=== PATIENT | male | born 1980 | race Caucasian/White ===

== ENCOUNTER 2020-07-12 14:52 | Inpatient (IN) | payer MEDICARE ==
[~2020-07-12] VITALS: Ht 165.1 cm; Wt 84.4 kg
[2020-07-12] MEDS ORDERED: DEXTROSE 50%-WATER 50 ML DISP.SYRIN IV ONE (15:25)
[2020-07-12] MEDS ORDERED: 0.9%NACL 1000ML 1,000 ML IV ONE (15:25)
[2020-07-12 15:32] LABS: BASOPHILS % (AUTO) 0.2 % (0.0-5.0); HEMATOCRIT 36.3 % (42-54); LYMPHOCYTES % (AUTO) 5.7 % (21.0-51.0); MEAN CORPUSCULAR HEMOGLOBIN 29.6 pg (27.0-33.0); MEAN CORPUSCULAR HGB CONC 33.3 g/dL (32.0-36.0); MEAN CORPUSCULAR VOLUME 88.8 fL (79-99); MONOCYTES % (AUTO) 3.1 % (3.0-13.0); NEUTROPHILS % (AUTO) 90.7 % (40.0-77.0); PLATELET COUNT (AUTO) 235 K/uL (130-400); RED BLOOD CELL COUNT(AUTO) 4.09 MIL/uL (4.50-6.20); RED CELL DISTRIBUTION WIDTH 12.2 % (11.0-15.5); WHITE BLOOD COUNT (AUTO) 9.8 K/uL (4.8-10.8)
[2020-07-12 15:42] LABS: CREATININE 3.4 mg/dL (0.5-1.5); INR 1.03 (0.85-1.15); POTASSIUM 4.4 mmol/L (3.5-5.1)
[2020-07-12 15:44] LABS: PARTIAL THROMBOPLASTIN TIME 28.2 SEC (26.3-35.5)
[2020-07-12 15:47] LABS: ALBUMIN 2.5 g/dL (3.5-5.0); BILIRUBIN,TOTAL 0.4 mg/dL (0.2-1.0); TOTAL PROTEIN, SERUM 6.6 g/dL (6.0-8.3)
[2020-07-12 16:05] LABS: ABG BASE EXCESS -3.5 mmol/L (-2.0-3.0); ABG HCO3 21.1 mmol/L (21.0-28.0); ABG PCO2 37 mmHg (35-48)
[2020-07-12 16:10] LABS: TROPONIN I 0.08 ng/mL (0.00-0.06)
[2020-07-12 17:46] LABS: APPEARANCE,URINE Clear (CLEAR); BILIRUBIN,URINE Negative (NEGATIVE); COLOR,URINE Yellow (YELLOW); GLUCOSE, URINE (UA) Negative (NEGATIVE); KETONES,URINE Negative (NEGATIVE); LEUKOCYTE ESTERASE ,URINE Negative (NEGATIVE); NITRATE,URINE Negative (NEGATIVE); OCCULT BLOOD,URINE Trace (NEGATIVE); PH,URINE 5.5 (5.0-8.0); PROTEIN,URINE >=1000 mg/dL (NEGATIVE); UROBILINOGEN,URINE 0.2 mg/dL (0.2-1.0)
[2020-07-12 17:53] LABS: AMPHET/METH SCREEN,URINE NEGATIVE (NEGATIVE); BARBITURATE SCREEN, URINE NEGATIVE (NEGATIVE); BENZODIAZEPINES SCREEN,URINE NEGATIVE (NEGATIVE); CANNABINOID SCREEN,URINE NEGATIVE (NEGATIVE); COCAINE SCREEN,URINE NEGATIVE (NEGATIVE); OPIATE SCREEN,URINE POSITIVE (NEGATIVE); PHENCYCLIDINE SCREEN,URINE NEGATIVE (NEGATIVE)
[2020-07-12 18:04] LABS: BACTERIA,URINE Moderate /HPF (None Seen); RBC,URINE 0-1 /HPF (0-1); WBC,URINE 0-1 /HPF (0-1)
[2020-07-12 18:05] LABS: SQUAMOUS EPITHELIAL CELL,UR Rare /HPF (0-2)
[2020-07-12] MEDS ORDERED: GUAIFENESIN-DM 200/20 MG 10 ML PO PRN (18:15)
[2020-07-12] MEDS: DEXTROSE 5%-LACTATED RINGERS 1,000 ML IV SCH (18:15)
[2020-07-12] MEDS ORDERED: DIPHENHYDRAMINE HCL 25 MG CAPSULE PO PRN (18:15)
[2020-07-12] MEDS ORDERED: MAG/ALUM/SIMETH 30 ML UDCUP PO PRN (18:15)
[2020-07-12] MEDS ORDERED: DiphenhydrAMINE HCL 50 MG/ML VIAL IV PRN (18:15)
[2020-07-12] MEDS ORDERED: ACETAMINOPHEN 325 MG TAB PO PRN (18:15)
[2020-07-12] MEDS ORDERED: LACTULOSE 20 GM/30 ML UDCUP PO PRN (18:15)
[2020-07-12] MEDS ORDERED: ONDANSETRON 4MG INJ IV PRN (18:15)
[2020-07-12] MEDS ORDERED: NALOXONE HCL 0.4 MG/1 ML ML ONE ×2 (18:26→18:38)
[2020-07-12 18:30] LABS: HEMOGLOBIN A1C 7.9 % (4.0-6.0)
[2020-07-12 19:40] LABS: HEMATOCRIT 31.9 % (42-54)
[2020-07-12 19:48] LABS: CREATININE 3.1 mg/dL (0.5-1.5); POTASSIUM 4.7 mmol/L (3.5-5.1)
[2020-07-12 19:52] LABS: MAGNESIUM 1.8 mg/dL (1.80-2.40)
[2020-07-12 20:04] LABS: ACETAMINOPHEN < 1 mcg/mL (10-29); ALCOHOL, BLOOD < 3 mg/dL (0-10); SALICYLATE < 2.8 mg/dL (2.8-20.0)
[2020-07-12] MEDS: CEFTRIAXONE 1G VIAL IVP SCH (22:00)
[2020-07-12] MEDS ORDERED: CEFTRIAXONE 1G VIAL ONE (22:13)
[2020-07-13] MEDS ORDERED: DEXTROSE 10%-WATER 1,000 ML IV ONE (00:40)
[2020-07-13] MEDS: DEXTROSE 5%-LACTATED RINGERS 1,000 ML IV SCH ×4 (04:15→23:33)
[2020-07-13 05:00] VITALS: BP 146/78
[2020-07-13] MEDS ORDERED: TORS10TA18 PO (05:33)
[2020-07-13] MEDS ORDERED: ACET1TAB25 PO (05:33)
[2020-07-13] MEDS ORDERED: ATOR40TA69 PO (05:33)
[2020-07-13] MEDS ORDERED: TICA90TA PO (05:33)
[2020-07-13 08:00] VITALS: BP 149/78
[2020-07-13] MEDS: FAMOTIDINE 20MG VIAL IV SCH (08:40)
[2020-07-13 12:00] VITALS: BP 160/88
[2020-07-13 14:48] LABS: BASOPHILS % (AUTO) 0.4 % (0.0-5.0); EOSINOPHILS % (AUTO) 0.6 % (0.0-8.0); HEMATOCRIT 30.1 % (42-54); LYMPHOCYTES % (AUTO) 11.9 % (21.0-51.0); MEAN CORPUSCULAR HEMOGLOBIN 30.5 pg (27.0-33.0); MEAN CORPUSCULAR HGB CONC 33.2 g/dL (32.0-36.0); MEAN CORPUSCULAR VOLUME 91.8 fL (79-99); MONOCYTES % (AUTO) 5.7 % (3.0-13.0); PLATELET COUNT (AUTO) 171 K/uL (130-400); RED BLOOD CELL COUNT(AUTO) 3.28 MIL/uL (4.50-6.20); RED CELL DISTRIBUTION WIDTH 12.5 % (11.0-15.5)
[2020-07-13 15:02] LABS: CREATININE 3.1 mg/dL (0.5-1.5); POTASSIUM 4.1 mmol/L (3.5-5.1)
[2020-07-13] MEDS: METOPROLOL TARTRATE 25 MG TAB PO SCH (15:03)
[2020-07-13 15:09] LABS: ALBUMIN 1.9 g/dL (3.5-5.0); BILIRUBIN,TOTAL 0.4 mg/dL (0.2-1.0); TOTAL PROTEIN, SERUM 5.3 g/dL (6.0-8.3)
[2020-07-13 16:00] VITALS: BP 179/94
[2020-07-13 20:13] VITALS: BP 177/94
[2020-07-13] MEDS ORDERED: METOPROLOL TARTRATE 25 MG TAB PO SCH (21:00)
[2020-07-13] MEDS: CEFTRIAXONE 1G VIAL IVP SCH (22:06)
[2020-07-13 23:41] VITALS: BP 178/97
[2020-07-14 04:10] VITALS: BP 178/98
[2020-07-14 06:06] LABS: BASOPHILS % (AUTO) 0.4 % (0.0-5.0); EOSINOPHILS % (AUTO) 0.6 % (0.0-8.0); HEMATOCRIT 33.6 % (42-54); LYMPHOCYTES % (AUTO) 11.2 % (21.0-51.0); MEAN CORPUSCULAR HEMOGLOBIN 29.9 pg (27.0-33.0); MEAN CORPUSCULAR HGB CONC 32.4 g/dL (32.0-36.0); MEAN CORPUSCULAR VOLUME 92.3 fL (79-99); MONOCYTES % (AUTO) 4.6 % (3.0-13.0); NEUTROPHILS % (AUTO) 82.9 % (40.0-77.0); PLATELET COUNT (AUTO) 174 K/uL (130-400); RED BLOOD CELL COUNT(AUTO) 3.64 MIL/uL (4.50-6.20); RED CELL DISTRIBUTION WIDTH 12.4 % (11.0-15.5)
[2020-07-14 06:45] LABS: HEMOGLOBIN A1C 7.8 % (4.0-6.0)
[2020-07-14 06:49] LABS: BILIRUBIN,DIRECT 0.2 mg/dL (0.0-0.3); BILIRUBIN,TOTAL 0.5 mg/dL (0.2-1.0); CREATININE 3.4 mg/dL (0.5-1.5); PHOSPHORUS 4.2 mg/dL (2.5-4.9); POTASSIUM 4.5 mmol/L (3.5-5.1); THYROID STIMULATING HORMONE 1.24 uIU/mL (0.36-3.74); TOTAL PROTEIN, SERUM 5.6 g/dL (6.0-8.3)
[2020-07-14 07:59] VITALS: BP 179/97
[2020-07-14 08:02] VITALS: BP 179/97
[2020-07-14] MEDS: DEXTROSE 5%-LACTATED RINGERS 1,000 ML IV SCH (10:30)
[2020-07-14] MEDS ORDERED: DEXTROSE 50%-WATER 50 ML DISP.SYRIN IV PRN (11:00)
[2020-07-14] MEDS ORDERED: GLUCAGON 1MG KIT 1 MG ML IM PRN (11:00)
[2020-07-14] MEDS: ASPIRIN 81MG CHEW TAB PO SCH (11:14)
[2020-07-14] MEDS: ISOSORBIDE DINITRATE 10MG TAB PO SCH ×2 (11:14→20:11)
[2020-07-14] MEDS: CLOPIDOGREL 75MG TAB PO SCH (11:14)
[2020-07-14] MEDS: Vitamin B Complex/Vit C/Folic Acid PO SCH (11:14)
[2020-07-14] MEDS: FAMOTIDINE 20MG VIAL IV SCH (11:14)
[2020-07-14] MEDS: CARVEDILOL 12.5 MG TABLET PO SCH ×2 (11:15→20:11)
[2020-07-14] MEDS: PANTOPRAZOLE 40 MG TAB DR PO SCH (11:15)
[2020-07-14] MEDS: METOPROLOL TARTRATE 25 MG TAB PO SCH (11:16)
[2020-07-14] MEDS: ENOXAPARIN SODIUM 40 MG/0.4 ML SYRINGE SQ SCH (11:16)
[2020-07-14] MEDS: THIAMINE HCL 100 MG/ML 2ML VIAL IVP SCH (11:16)
[2020-07-14] MEDS: 0.9%NACL 1000ML 1,000 ML IV SCH ×2 (11:24→22:43)
[2020-07-14 12:00] VITALS: BP 177/97
[2020-07-14] MEDS: INSULIN HUMULIN R 100 UNIT/ML 3ML SQ SCH ×3 (14:36→20:13)
[2020-07-14 16:43] VITALS: BP 147/72
[2020-07-14] MEDS: PHARMACY COMMUNICATION MISC SCH (22:43)
[2020-07-14] MEDS: CEFTRIAXONE 1G VIAL IVP SCH (22:52)
[2020-07-14 23:57] VITALS: BP 112/58
[2020-07-15] MEDS ORDERED: DiphenhydrAMINE HCL 50 MG/ML VIAL IM PRN (02:15)
[2020-07-15] MEDS ORDERED: HALOPERIDOL INJ 5 MG/ML VIAL IM PRN (02:15)
[2020-07-15 04:00] VITALS: BP 140/70
[2020-07-15] MEDS: 0.9%NACL 1000ML 1,000 ML IV SCH (06:03)
[2020-07-15 06:04] LABS: BASOPHILS % (AUTO) 0.5 % (0.0-5.0); EOSINOPHILS % (AUTO) 0.7 % (0.0-8.0); HEMATOCRIT 26.9 % (42-54); LYMPHOCYTES % (AUTO) 15.6 % (21.0-51.0); MEAN CORPUSCULAR HGB CONC 32.7 g/dL (32.0-36.0); MEAN CORPUSCULAR VOLUME 91.8 fL (79-99); NEUTROPHILS % (AUTO) 77.9 % (40.0-77.0); PLATELET COUNT (AUTO) 153 K/uL (130-400); RED BLOOD CELL COUNT(AUTO) 2.93 MIL/uL (4.50-6.20); RED CELL DISTRIBUTION WIDTH 12.3 % (11.0-15.5); WHITE BLOOD COUNT (AUTO) 6.1 K/uL (4.8-10.8)
[2020-07-15] MEDS: INSULIN HUMULIN R 100 UNIT/ML 3ML SQ SCH ×4 (06:14→20:24)
[2020-07-15 06:20] LABS: ALBUMIN 1.8 g/dL (3.5-5.0); BILIRUBIN,TOTAL 0.4 mg/dL (0.2-1.0); POTASSIUM 4.5 mmol/L (3.5-5.1)
[2020-07-15 07:30] VITALS: BP 143/65
[2020-07-15] MEDS: PHARMACY COMMUNICATION MISC SCH ×2 (11:15→19:26)
[2020-07-15] MEDS: Vitamin B Complex/Vit C/Folic Acid PO SCH (11:22)
[2020-07-15] MEDS: ASPIRIN 81MG CHEW TAB PO SCH (11:22)
[2020-07-15] MEDS: FAMOTIDINE 20MG VIAL IV SCH (11:22)
[2020-07-15] MEDS: THIAMINE HCL 100 MG/ML 2ML VIAL IVP SCH (11:22)
[2020-07-15] MEDS: CARVEDILOL 12.5 MG TABLET PO SCH ×2 (11:23→20:17)
[2020-07-15] MEDS: ISOSORBIDE DINITRATE 10MG TAB PO SCH ×2 (11:23→20:17)
[2020-07-15] MEDS: PANTOPRAZOLE 40 MG TAB DR PO SCH (11:24)
[2020-07-15] MEDS: CLOPIDOGREL 75MG TAB PO SCH (11:24)
[2020-07-15] MEDS: ENOXAPARIN SODIUM 40 MG/0.4 ML SYRINGE SQ SCH (11:26)
[2020-07-15 11:30] VITALS: BP 156/81
[2020-07-15] MEDS: METOPROLOL TARTRATE 25 MG TAB PO SCH (12:30)
[2020-07-15] MEDS: LACTATED RINGERS 1000ML IV SCH (13:58)
[2020-07-15] MEDS: LACTATED RINGERS 1000ML 1,000 ML IV SCH ×2 (14:04→20:19)
[2020-07-15 16:00] VITALS: BP 157/81
[2020-07-15 20:00] VITALS: BP 133/71
[2020-07-15] MEDS: CEFTRIAXONE 1G VIAL IVP SCH (20:25)
[2020-07-16] VITALS: BP 126/70
[2020-07-16] MEDS: LACTATED RINGERS 1000ML 1,000 ML IV SCH ×4 (01:37→20:49)
[2020-07-16 04:00] VITALS: BP 137/76
[2020-07-16 05:45] LABS: MEAN CORPUSCULAR HEMOGLOBIN 30.4 pg (27.0-33.0); MEAN CORPUSCULAR VOLUME 92.2 fL (79-99); PLATELET COUNT (AUTO) 162 K/uL (130-400); RED BLOOD CELL COUNT(AUTO) 2.93 MIL/uL (4.50-6.20); RED CELL DISTRIBUTION WIDTH 12.4 % (11.0-15.5); WHITE BLOOD COUNT (AUTO) 4.2 K/uL (4.8-10.8)
[2020-07-16] MEDS: INSULIN HUMULIN R 100 UNIT/ML 3ML SQ SCH ×4 (06:36→21:08)
[2020-07-16 06:56] LABS: ALBUMIN 1.8 g/dL (3.5-5.0); BILIRUBIN,TOTAL 0.2 mg/dL (0.2-1.0); CREATININE 3.7 mg/dL (0.5-1.5); MAGNESIUM 2.1 mg/dL (1.80-2.40); PHOSPHORUS 3.7 mg/dL (2.5-4.9); POTASSIUM 4.7 mmol/L (3.5-5.1); TOTAL PROTEIN, SERUM 5.1 g/dL (6.0-8.3)
[2020-07-16 07:14] LABS: EOSINOPHILS % (MANUAL) 3 % (1-6); LYMPHOCYTES % (MANUAL) 20 % (22-44); MAN.DIFF COMMENT-IMPRESSION MANUAL DIFFERENTIAL; MONOCYTES % (MANUAL) 3 % (2-9); PLATELET MORPHOLOGY COMMENT ADEQUATE; SEGMENTED NEUTROPHILS % 74 % (40-70)
[2020-07-16] MEDS: FAMOTIDINE 20MG VIAL IV SCH (11:13)
[2020-07-16] MEDS: CARVEDILOL 12.5 MG TABLET PO SCH ×2 (11:14→20:50)
[2020-07-16] MEDS: PANTOPRAZOLE 40 MG TAB DR PO SCH (11:15)
[2020-07-16] MEDS: PHARMACY COMMUNICATION MISC SCH ×2 (11:15→19:15)
[2020-07-16] MEDS: ISOSORBIDE DINITRATE 10MG TAB PO SCH ×3 (11:15→20:49)
[2020-07-16] MEDS: Vitamin B Complex/Vit C/Folic Acid PO SCH (11:15)
[2020-07-16] MEDS: METOPROLOL TARTRATE 25 MG TAB PO SCH (11:15)
[2020-07-16] MEDS: ASPIRIN 81MG CHEW TAB PO SCH (11:15)
[2020-07-16] MEDS: THIAMINE HCL 100 MG/ML 2ML VIAL IVP SCH (11:16)
[2020-07-16] MEDS: CLOPIDOGREL 75MG TAB PO SCH (11:16)
[2020-07-16] MEDS: ENOXAPARIN SODIUM 40 MG/0.4 ML SYRINGE SQ SCH (11:17)
[2020-07-16] MEDS: LACTATED RINGERS 1000ML IV SCH (13:15)
[2020-07-16 16:00] VITALS: BP 157/85
[2020-07-16 19:15] VITALS: BP 153/77
[2020-07-16] MEDS: CEFTRIAXONE 1G VIAL IVP SCH (20:50)
[2020-07-16 23:15] VITALS: BP 146/76
[2020-07-17 03:15] VITALS: BP 129/66
[2020-07-17] MEDS: PHARMACY COMMUNICATION MISC SCH ×2 (03:15→11:15)
[2020-07-17] MEDS: LACTATED RINGERS 1000ML 1,000 ML IV SCH ×4 (05:12→21:58)
[2020-07-17 06:09] LABS: BASOPHILS % (AUTO) 0.7 % (0.0-5.0); EOSINOPHILS % (AUTO) 2.9 % (0.0-8.0); HEMATOCRIT 26.6 % (42-54); LYMPHOCYTES % (AUTO) 25.3 % (21.0-51.0); MEAN CORPUSCULAR HEMOGLOBIN 29.6 pg (27.0-33.0); MEAN CORPUSCULAR HGB CONC 32.7 g/dL (32.0-36.0); MEAN CORPUSCULAR VOLUME 90.5 fL (79-99); MONOCYTES % (AUTO) 5.1 % (3.0-13.0); PLATELET COUNT (AUTO) 167 K/uL (130-400); RED BLOOD CELL COUNT(AUTO) 2.94 MIL/uL (4.50-6.20); RED CELL DISTRIBUTION WIDTH 12.3 % (11.0-15.5); WHITE BLOOD COUNT (AUTO) 4.6 K/uL (4.8-10.8)
[2020-07-17] MEDS: INSULIN HUMULIN R 100 UNIT/ML 3ML SQ SCH ×4 (06:53→22:02)
[2020-07-17 07:00] LABS: CREATININE 3.8 mg/dL (0.5-1.5); POTASSIUM 4.4 mmol/L (3.5-5.1)
[2020-07-17 08:00] VITALS: BP 133/76
[2020-07-17] MEDS: Vitamin B Complex/Vit C/Folic Acid PO SCH (09:54)
[2020-07-17] MEDS: ASPIRIN 81MG CHEW TAB PO SCH (09:54)
[2020-07-17] MEDS: PANTOPRAZOLE 40 MG TAB DR PO SCH (09:58)
[2020-07-17] MEDS: CLOPIDOGREL 75MG TAB PO SCH (09:58)
[2020-07-17] MEDS: ISOSORBIDE DINITRATE 10MG TAB PO SCH ×3 (09:58→21:59)
[2020-07-17] MEDS: ENOXAPARIN SODIUM 40 MG/0.4 ML SYRINGE SQ SCH (09:59)
[2020-07-17] MEDS: CARVEDILOL 12.5 MG TABLET PO SCH ×2 (10:00→21:59)
[2020-07-17] MEDS: THIAMINE HCL 100 MG/ML 2ML VIAL IVP SCH (10:01)
[2020-07-17] MEDS: FAMOTIDINE 20MG VIAL IV SCH (10:01)
[2020-07-17 11:44] VITALS: BP 149/81
[2020-07-17] MEDS: METOPROLOL TARTRATE 25 MG TAB PO SCH (12:04)
[2020-07-17] MEDS: LACTATED RINGERS 1000ML IV SCH (13:15)
[2020-07-17 16:00] VITALS: BP 147/82
[2020-07-17 20:00] VITALS: BP 141/68
[2020-07-17] MEDS: CEFTRIAXONE 1G VIAL IVP SCH (21:58)
[2020-07-18] VITALS (7 sets, daily range): BP systolic 129–167; BP diastolic 71–87
[2020-07-18] MEDS: INSULIN HUMULIN R 100 UNIT/ML 3ML SQ SCH ×4 (06:59→20:48)
[2020-07-18] MEDS: ASPIRIN 81MG CHEW TAB PO SCH (10:16)
[2020-07-18] MEDS: Vitamin B Complex/Vit C/Folic Acid PO SCH (10:16)
[2020-07-18] MEDS: ISOSORBIDE DINITRATE 10MG TAB PO SCH ×3 (10:17→20:30)
[2020-07-18] MEDS: CLOPIDOGREL 75MG TAB PO SCH (10:17)
[2020-07-18] MEDS: PANTOPRAZOLE 40 MG TAB DR PO SCH (10:18)
[2020-07-18] MEDS: FAMOTIDINE 20MG VIAL IV SCH (10:18)
[2020-07-18] MEDS: CARVEDILOL 12.5 MG TABLET PO SCH ×2 (10:18→20:30)
[2020-07-18] MEDS: ENOXAPARIN SODIUM 40 MG/0.4 ML SYRINGE SQ SCH (10:19)
[2020-07-18] MEDS: THIAMINE HCL 100 MG/ML 2ML VIAL IVP SCH (10:19)
[2020-07-18] MEDS: ACETAMINOPHEN 325 MG TAB PO PRN (10:36)
[2020-07-18] MEDS: METOPROLOL TARTRATE 25 MG TAB PO SCH (12:30)
[2020-07-18] MEDS: LACTATED RINGERS 1000ML IV SCH (13:15)
[2020-07-18] MEDS: LACTATED RINGERS 1000ML 1,000 ML IV SCH ×3 (13:51→20:29)
[2020-07-18] MEDS: CEFTRIAXONE 1G VIAL IVP SCH (20:30)
[2020-07-19] MEDS: NITROGLYCERIN 0.4 MG SL TAB SL PRN ×3 (00:50→02:53)
[2020-07-19] MEDS: LACTATED RINGERS 1000ML 1,000 ML IV SCH ×4 (02:53→23:23)
[2020-07-19] MEDS: ACETAMINOPHEN 325 MG TAB PO PRN (02:54)
[2020-07-19] MEDS: INSULIN HUMULIN R 100 UNIT/ML 3ML SQ SCH ×4 (03:08→21:00)
[2020-07-19 03:09] VITALS: BP 162/85
[2020-07-19] MEDS ORDERED: MORPHINE 2 MG SYG ONE (03:46)
[2020-07-19 04:00] VITALS: BP 172/98
[2020-07-19] MEDS ORDERED: PHARMACY COMMUNICATION MISC SCH (04:00)
[2020-07-19] MEDS ORDERED: HEPARIN 25,000 UNITS/250ML D5W 250 ML IV SCH (04:00)
[2020-07-19] MEDS ORDERED: HEPARIN SQ SCH ×6 (04:30→07:00)
[2020-07-19] MEDS ORDERED: NACL 0.9% SQ SCH ×5 (04:30→07:00)
[2020-07-19] MEDS: NITROGLYCERIN 1GM OINT 1 INCH/1GM TD SCH ×3 (05:09→21:30)
[2020-07-19] MEDS: MORPHINE 2 MG SYG IVP PRN ×3 (05:31→07:41)
[2020-07-19 06:11] LABS: HEMATOCRIT 27.2 % (42-54); MEAN CORPUSCULAR HEMOGLOBIN 29.6 pg (27.0-33.0); MEAN CORPUSCULAR HGB CONC 33.1 g/dL (32.0-36.0); MEAN CORPUSCULAR VOLUME 89.5 fL (79-99); PLATELET COUNT (AUTO) 157 K/uL (130-400); RED BLOOD CELL COUNT(AUTO) 3.04 MIL/uL (4.50-6.20); RED CELL DISTRIBUTION WIDTH 12.1 % (11.0-15.5); WHITE BLOOD COUNT (AUTO) 4.2 K/uL (4.8-10.8)
[2020-07-19 06:33] LABS: ALBUMIN 1.5 g/dL (3.5-5.0); BILIRUBIN,TOTAL 0.2 mg/dL (0.2-1.0); CREATININE 3.2 mg/dL (0.5-1.5); TOTAL PROTEIN, SERUM 4.7 g/dL (6.0-8.3)
[2020-07-19 06:49] LABS: INR 1.09 (0.85-1.15); PROTHROMBIN TIME 11.6 SEC (9.6-11.6)
[2020-07-19 06:51] LABS: PARTIAL THROMBOPLASTIN TIME 30.8 SEC (26.3-35.5)
[2020-07-19] MEDS ORDERED: D5W SQ SCH (07:00)
[2020-07-19 07:15] VITALS: BP 179/92
[2020-07-19] MEDS ORDERED: HEPARIN 5,000 UNIT VIAL ONE (07:35)
[2020-07-19 09:25] LABS: EOSINOPHILS % (MANUAL) 6 % (1-6); LYMPHOCYTES % (MANUAL) 23 % (22-44); MAN.DIFF COMMENT-IMPRESSION MANUAL DIFFERENTIAL; MONOCYTES % (MANUAL) 1 % (2-9); PLATELET MORPHOLOGY COMMENT ADEQUATE; SEGMENTED NEUTROPHILS % 70 % (40-70)
[2020-07-19] MEDS: PANTOPRAZOLE 40 MG TAB DR PO SCH (10:03)
[2020-07-19] MEDS: THIAMINE HCL 100 MG/ML 2ML VIAL IVP SCH (10:03)
[2020-07-19] MEDS: CLOPIDOGREL 75MG TAB PO SCH (10:03)
[2020-07-19] MEDS: Vitamin B Complex/Vit C/Folic Acid PO SCH (10:03)
[2020-07-19] MEDS: FAMOTIDINE 20MG VIAL IV SCH (10:03)
[2020-07-19] MEDS: ASPIRIN 81MG CHEW TAB PO SCH (10:03)
[2020-07-19] MEDS: CARVEDILOL 12.5 MG TABLET PO SCH ×2 (10:04→21:33)
[2020-07-19] MEDS: ISOSORBIDE DINITRATE 10MG TAB PO SCH ×3 (10:04→21:28)
[2020-07-19] MEDS: METOPROLOL TARTRATE 25 MG TAB PO SCH (12:30)
[2020-07-19] MEDS: LACTATED RINGERS 1000ML IV SCH (13:15)
[2020-07-19] MEDS: CEFTRIAXONE 1G VIAL IVP SCH (21:28)
[2020-07-19 23:16] VITALS: BP 154/89
[2020-07-20 04:28] LABS: HEMATOCRIT 30.4 % (42-54); MEAN CORPUSCULAR HEMOGLOBIN 30.1 pg (27.0-33.0); MEAN CORPUSCULAR HGB CONC 33.6 g/dL (32.0-36.0); MEAN CORPUSCULAR VOLUME 89.7 fL (79-99); PLATELET COUNT (AUTO) 203 K/uL (130-400); RED BLOOD CELL COUNT(AUTO) 3.39 MIL/uL (4.50-6.20)
[2020-07-20 04:50] VITALS: BP 173/84
[2020-07-20 04:57] LABS: ALBUMIN 1.8 g/dL (3.5-5.0); BILIRUBIN,TOTAL 0.2 mg/dL (0.2-1.0); CREATININE 3.1 mg/dL (0.5-1.5); POTASSIUM 4.5 mmol/L (3.5-5.1); TOTAL PROTEIN, SERUM 5.1 g/dL (6.0-8.3)
[2020-07-20] MEDS: NITROGLYCERIN 1GM OINT 1 INCH/1GM TD SCH ×2 (05:06→14:00)
[2020-07-20] MEDS: LACTATED RINGERS 1000ML 1,000 ML IV SCH (05:07)
[2020-07-20] MEDS: INSULIN HUMULIN R 100 UNIT/ML 3ML SQ SCH ×3 (06:29→11:30)
[2020-07-20 07:55] LABS: BASOPHILS % (AUTO) 0.6 % (0.0-5.0); EOSINOPHILS % (AUTO) 5.7 % (0.0-8.0); LYMPHOCYTES % (AUTO) 17.8 % (21.0-51.0); MONOCYTES % (AUTO) 4.5 % (3.0-13.0); NEUTROPHILS % (AUTO) 71.1 % (40.0-77.0)
[2020-07-20 08:01] LABS: MAGNESIUM 1.8 mg/dL (1.80-2.40); PHOSPHORUS 3.1 mg/dL (2.5-4.9)
[2020-07-20 08:07] VITALS: BP 172/92
[2020-07-20] MEDS: ASPIRIN 81MG CHEW TAB PO SCH (09:00)
[2020-07-20] MEDS: THIAMINE HCL 100 MG/ML 2ML VIAL IVP SCH (09:00)
[2020-07-20] MEDS: ISOSORBIDE DINITRATE 10MG TAB PO SCH ×2 (09:00→14:01)
[2020-07-20] MEDS: CLOPIDOGREL 75MG TAB PO SCH (09:00)
[2020-07-20] MEDS: CARVEDILOL 12.5 MG TABLET PO SCH (09:00)
[2020-07-20] MEDS: Vitamin B Complex/Vit C/Folic Acid PO SCH (09:00)
[2020-07-20] MEDS: PANTOPRAZOLE 40 MG TAB DR PO SCH (09:00)
[2020-07-20] MEDS: FAMOTIDINE 20MG VIAL IV SCH (09:00)
[2020-07-20 12:00] VITALS: BP 139/70
[2020-07-20] MEDS: METOPROLOL TARTRATE 25 MG TAB PO SCH (13:56)
[2020-07-20] MEDS ORDERED: TORSEMIDE 20 MG TAB PO SCH (15:30)
== END 2020-07-20 16:05 | disposition home or self-care (01) | DRG 70 ==
LOC: EDH 14:52 → EDHIP 18:09 → 3AH 07-13 03:40 → 3DH 07-14 20:54 → 3BH 07-16 06:47
PROVIDERS: ADMIT Family Medicine; ATTEND Family Medicine
DX: G93.41 Metabolic encephalopathy (principal); I21.4 Non-ST elevation (NSTEMI) myocardial infarction; N17.9 Acute kidney failure, unspecified; M62.82 Rhabdomyolysis; R47.01 Aphasia; N18.9 Chronic kidney disease, unspecified; Z20.822 Contact with and (suspected) exposure to COVID-19; R79.89 Other specified abnormal findings of blood chemistry; E78.5 Hyperlipidemia, unspecified; H70.93 Unspecified mastoiditis, bilateral; H54.7 Unspecified visual loss; E88.09 Other disorders of plasma-protein metabolism, not elsewhere classified; E10.649 Type 1 diabetes mellitus with hypoglycemia without coma; E10.319 Type 1 diabetes mellitus with unspecified diabetic retinopathy without macular edema; E10.22 Type 1 diabetes mellitus with diabetic chronic kidney disease; E10.39 Type 1 diabetes mellitus with other diabetic ophthalmic complication; D64.9 Anemia, unspecified; E10.65 Type 1 diabetes mellitus with hyperglycemia; J32.0 Chronic maxillary sinusitis; I12.9 Hypertensive chronic kidney disease with stage 1 through stage 4 chronic kidney disease, or unspecified chronic kidney disease; F32.9 Major depressive disorder, single episode, unspecified; I08.1 Rheumatic disorders of both mitral and tricuspid valves; Z87.441 Personal history of nephrotic syndrome
CPT/HCPCS: 36415; 36600; 70450; 70551; 71045; 76870; 80048; 80053; 80061; 80076; 80305; 81001; 82140; 82550; 82570; 82803; 82948; 83036; 83735; 83874; 84100; 84156; 84443; 84484; 85014; 85018; 85025; 85027; 85610; 85730; 86701; 87088; 87390; 87426; 87804; 92507; 92522; 92610; 93005; 93306; 93356; 97039; G0378; G0480; G0481; J0696; J1630; J1644; J1650; J1815; J2310; J3411; J3490; J7030; J7050; J7070; J7120; U0003